=== PATIENT | female | born 1975 | race Asian ===

== ENCOUNTER 2016-08-01 12:20 | Emergency (ER) | payer OTHER ==
--- NOTE | 2016-08-01 13:37 | DIAGNOSTIC IMAGING REPORT ---
PROCEDURE: XR CHEST 2 VIEW INDICATION: COUGH TECHNIQUE: PA and lateral views. COMPARISON: None. FINDINGS: Lungs are clear. Heart and mediastinum are normal. Thorax is normal. IMPRESSION: 1. Negative chest.
--- NOTE | 2016-08-01 14:24 | ED NURSING NOTES ---
Clinical Report - Nurses [facility] [address] [place] [address] 08/01/2016 12:20 Patient: CLEMENTINA JIANG TRIAGE Triage time 12:Aug 01 2016. Acuity: LEVEL 4. Chief Complaint: COUGH, RUNNY NOSE and SORE THROAT. BENITA COMA SCORE: Benita Coma Scale: 15- eyes open spontaneously (4); best verbal response- oriented x 4 (5); best motor response- obeys commands (6). --12:35 Nora Meier R.N. 12:27 08/01/16. BP: 145/73. HR: 87. RR: 18. O2 saturation: 100%. Temp: 98.6 F. Pain level now 7/10. --12:35 Nora Meier R.N. Weight: 72.5 kg stated. Height/Length: 66 inches Per Patient. BMI: 25.8. --12:33 Nora Meier R.N. Medications Benadryl Allergy Oral. --12:31 Nora Meier R.N. Allergies No Known Drug Allergy. --12:31 Nora Meier R.N. History Arrived by private vehicle. Historian: patient. Accompanied by family. Onset. (Last week). ( Started having cough and last week accidently inhaled disinfection spray and thought that's where her coughing started. Now she feels achy and and when she takes a deep breath her chest and back hurts.). She has had a nasal discharge, chest congestion, chills, fatigue and a headache. She has had photophobia. Reports muscle aches. No sinus pain or difficulty breathing. 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 PAST MEDICAL HX: Immunizations: up-to-date. Last normal menstrual period- 2 days ago. SOCIAL HX: Never smoker. Occasional alcohol use. No drug use. No infectious disease exposure. SELF HARM ASSESSMENT: A self harm assessment was performed. The patient answered "no" to the question "Have you recently felt down, depressed, or hopeless?" and "Do you have thoughts of harming or killing yourself?". FALL RISK ASSESSMENT: Fall risk assessment completed. No fall risk identified. NUTRITIONAL RISK ASSESSMENT: The nutritional risk assessment revealed no deficiencies. FUNCTIONAL ASSESSMENT: Functional assessment: no impairments noted. LEARNING NEEDS ASSESSMENT: The learning needs assessment revealed no barriers. ABUSE ASSESSMENT: Abuse assessment: (yes) The patient was asked "Do you feel safe in your home?". SKIN INTEGRITY ASSESSMENT: Skin integrity risk assessment completed. No skin integrity risk identified. --12:35 Nora Meier R.N. PROBLEMS: Influenza. Gastroesophageal Reflux Disease. --12:31 Nora Meier R.N. ADDITIONAL SURGERIES: . Tonsillectomy. Tubal Ligation. --12:31 Nora Meier R.N. Interventions ID band on patient. --12:35 Nora Meier R.N. PHYSICAL ASSESSMENT Ambulatory to room. GENERAL / NEURO / PSYCH: Alert. Oriented X 4. Appears in no acute distress. HEENT: Pupils equal, round and reactive to light. Ears within normal limits. Nares within normal limits. Mouth within normal limits upon inspection. Pharynx within normal limits. Voice within normal limits. Mucous membranes are pink. RESPIRATORY: Respirations not labored. Breath sounds within normal limits. CVS: Normal sinus rhythm noted. Capillary refill less than 2 seconds. SKIN: Skin is warm and dry. Normal skin turgor. --12:36 Nora Meier R.N. NURSING PROGRESS NOTES Pulse oximeter and NIBP monitor placed on patient. Head of bed elevated (90). Reassurance given. --12:36 Nora Meier R.N. DISPOSITION / DISCHARGE Departure time: 14:37 Aug 01 2016. Condition at departure: improved. No learning barriers present. Discharge instructions provided and reviewed with the patient. Reviewed warnings. Reviewed medication(s). Treatments reviewed. Reviewed referrals. Patient verbalized understanding. Written instructions provided in [place]. The patient was discharged home and accompanied by spouse. She left the Emergency Department ambulatory and via private vehicle. Spouse driving. --14:38 Nora Meier R.N. 14:35 08/01/16. BP: 132/70. HR: 77. RR: 18. O2 saturation: 97%. Temp: 97.8 F. Pain level now 06/14. --14:38 Nora Meier R.N. Locked/Released at 08/01/2016 16:46 by Nora Meier R.N.
--- NOTE | 2016-08-01 14:24 | ED NURSING NOTES ---
Clinical Report - Nurses [facility] [address] [place] [address] 08/01/2016 12:20 Patient: CLEMENTINA JIANG TRIAGE Triage time 12:Aug 01 2016. Acuity: LEVEL 4. Chief Complaint: COUGH, RUNNY NOSE and SORE THROAT. BENITA COMA SCORE: Benita Coma Scale: 15- eyes open spontaneously (4); best verbal response- oriented x 4 (5); best motor response- obeys commands (6). --12:35 Nora Meier R.N. 12:27 08/01/16. BP: 145/73. HR: 87. RR: 18. O2 saturation: 100%. Temp: 98.6 F. Pain level now 7/10. --12:35 Nora Meier R.N. Weight: 72.5 kg stated. Height/Length: 66 inches Per Patient. BMI: 25.8. --12:33 Nora Meier R.N. Medications Benadryl Allergy Oral. --12:31 Nora Meier R.N. Allergies No Known Drug Allergy. --12:31 Nora Meier R.N. History Arrived by private vehicle. Historian: patient. Accompanied by family. Onset. (Last week). ( Started having cough and last week accidently inhaled disinfection spray and thought that's where her coughing started. Now she feels achy and and when she takes a deep breath her chest and back hurts.). She has had a nasal discharge, chest congestion, chills, fatigue and a headache. She has had photophobia. Reports muscle aches. No sinus pain or difficulty breathing. 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 PAST MEDICAL HX: Immunizations: up-to-date. Last normal menstrual period- 2 days ago. SOCIAL HX: Never smoker. Occasional alcohol use. No drug use. No infectious disease exposure. SELF HARM ASSESSMENT: A self harm assessment was performed. The patient answered "no" to the question "Have you recently felt down, depressed, or hopeless?" and "Do you have thoughts of harming or killing yourself?". FALL RISK ASSESSMENT: Fall risk assessment completed. No fall risk identified. NUTRITIONAL RISK ASSESSMENT: The nutritional risk assessment revealed no deficiencies. FUNCTIONAL ASSESSMENT: Functional assessment: no impairments noted. LEARNING NEEDS ASSESSMENT: The learning needs assessment revealed no barriers. ABUSE ASSESSMENT: Abuse assessment: (yes) The patient was asked "Do you feel safe in your home?". SKIN INTEGRITY ASSESSMENT: Skin integrity risk assessment completed. No skin integrity risk identified. --12:35 Nora Meier R.N. PROBLEMS: Influenza. Gastroesophageal Reflux Disease. --12:31 Nora Meier R.N. ADDITIONAL SURGERIES: . Tonsillectomy. Tubal Ligation. --12:31 Nora Meier R.N. Interventions ID band on patient. --12:35 Nora Meier R.N. PHYSICAL ASSESSMENT Ambulatory to room. GENERAL / NEURO / PSYCH: Alert. Oriented X 4. Appears in no acute distress. HEENT: Pupils equal, round and reactive to light. Ears within normal limits. Nares within normal limits. Mouth within normal limits upon inspection. Pharynx within normal limits. Voice within normal limits. Mucous membranes are pink. RESPIRATORY: Respirations not labored. Breath sounds within normal limits. CVS: Normal sinus rhythm noted. Capillary refill less than 2 seconds. SKIN: Skin is warm and dry. Normal skin turgor. --12:36 Nora Meier R.N. NURSING PROGRESS NOTES Pulse oximeter and NIBP monitor placed on patient. Head of bed elevated (90). Reassurance given. --12:36 Nora Meier R.N. DISPOSITION / DISCHARGE Departure time: 14:37 Aug 01 2016. Condition at departure: improved. No learning barriers present. Discharge instructions provided and reviewed with the patient. Reviewed warnings. Reviewed medication(s). Treatments reviewed. Reviewed referrals. Patient verbalized understanding. Written instructions provided in [place]. The patient was discharged home and accompanied by spouse. She left the Emergency Department ambulatory and via private vehicle. Spouse driving. --14:38 Nora Meier R.N. 14:35 08/01/16. BP: 132/70. HR: 77. RR: 18. O2 saturation: 97%. Temp: 97.8 F. Pain level now 06/14. --14:38 Nora Meier R.N. Locked/Released at 08/01/2016 16:46 by Nora Meier R.N.
--- NOTE | 2016-08-01 14:24 | ED ORDER SUMMARY ---
..... Patient: CLEMENTINA JIANG OrderSheet Located Within [facility] VisitID: [id number] [place] [address] 41y, F Registration Date/Time: 08/01/2016 ORDER SHEET Weight: 72.5 kg (stated) Allergies: No Known Drug Allergy GENERAL ORDERS: Chest 2V Urgent (12:41 08/01/2016 Marely Nuñez) (Ack 12:44 oerner) (13:00 oermagan) MEDICATION ORDERS: IV FLUIDS: ORDER SHEET NOTES: [Electronically signed by Bibi MonroeNJose Enrique (15:22 08/01/2016)] [Electronically signed by Nora Meier R.N. (16:46 08/01/2016)] [Electronically locked/signed by Nora Meier R.N. (16:46 08/01/2016)]
--- NOTE | 2016-08-01 14:24 | ED ORDER SUMMARY ---
..... Patient: CLEMENTINA JIANG OrderSheet [facility] VisitID: [id number] [place] [address] 41y, F Registration Date/Time: 08/01/2016 ORDER SHEET Weight: 72.5 kg (stated) Allergies: No Known Drug Allergy GENERAL ORDERS: Chest 2V Urgent (12:41 08/01/2016 Marely Nuñez) (Ack 12:44 oerner) (13:00 oermagan) MEDICATION ORDERS: IV FLUIDS: ORDER SHEET NOTES: [Electronically signed by Bibi MonroeNJose Enrique (15:22 08/01/2016)] [Electronically signed by Nora Meier R.N. (16:46 08/01/2016)] [Electronically locked/signed by Nora Meier R.N. (16:46 08/01/2016)]
--- NOTE | 2016-08-01 14:24 | ED CLINICAL REPORT ---
Clinical Report - Physicians/Mid Levels [facility] [address] [place] [address] 08/01/2016 12:20 Patient: CLEMENTINA JIANG Time Seen: 13:07; initial patient contact, initial documentation, patient care assumed. Arrived- By private vehicle. Historian- patient. HISTORY OF PRESENT ILLNESS Chief Complaint: COUGH and SORE THROAT. This started about 1 weeks ago and is still present. It was abrupt in onset and has been constant. The illness is described as mild. The patient has had a cough, a sore throat, nasal congestion, chills and muscle aches. She has had a nasal discharge. No sputum production, fever, sinus pressure, sinus drainage or ear pain. She has had generalized chest soreness (with cough and deep breath). Additional history - The patient has had contact with a sick family member. Symptoms of the sick contact include cough. They have had similar symptoms. No recent travel. Similar symptoms previously: None. Recent medical care: Not recently seen/assessed. REVIEW OF SYSTEMS The patient has had a headache. No vomiting or diarrhea. Denies current . fatigue, tired. All systems otherwise negative, except as recorded above. PAST HISTORY See nurses notes. PROBLEMS: Influenza. Gastroesophageal Reflux Disease. --12:31 Nora Meier R.N. ADDITIONAL SURGERIES: . Tonsillectomy. Tubal Ligation. --12:31 Nora Meier R.N. SOCIAL HISTORY Never smoker. Occasional alcohol use. Not exposed to second-hand smoke at home. No drug use. No recent travel. Is a local resident. FAMILY HISTORY Negative. ADDITIONAL NOTES The nursing notes have been reviewed with agreement regarding the chief complaint, HPI, ROS, PMH and patient medications and allergies. PHYSICAL EXAM Vital Signs: 08/01/2016 12:27 BP: 145/73. HR: 87. RR: 18. O2 saturation: 100%. Temp: 98.6 F. Have been reviewed as normal and appear to be correct. Appearance: Alert. No acute distress. Eyes: Pupils equal, round and reactive to light. Eyes normal inspection. ENT: Ears normal. Nose normal. Pharynx normal. Uvula midline. Neck: Normal inspection. Neck supple. CVS: Normal heart rate and rhythm. Heart sounds normal. Pulses normal. Respiratory: No respiratory distress. Breath sounds normal. Back: Normal inspection. Skin: Skin warm and dry. Normal skin color. No rash. Normal skin turgor. Extremities: Extremities exhibit normal ROM. No lower extremity edema. Neuro: Oriented X 3. No motor deficit. No sensory deficit. PROGRESS AND PROCEDURES Patient counseled in person regarding the patient's stable condition and diagnosis. 14:23. Differential Diagnosis: Other possible considerations: uri, flu, viral illness, allergies, sinusitis, bronchitis, pneumonia. Above considerations are based on history and physical exam. Differential diagnosis was discussed with patient. Disposition: Discharged home in good and unchanged condition (14:24). Condition: good and stable. CLINICAL IMPRESSION Acute viral rhinitis. INSTRUCTIONS Alternate Tylenol (Acetaminophen) and Motrin (Ibuprofen) for fever, temperature greater than 101 degrees orally. Take according to label instructions. Drink plenty of fluids for the next 24 hours until better. Warnings: GENERAL WARNINGS: Return or contact your physician immediately if your condition worsens or changes unexpectedly, if not improving as expected, or if other problems arise. Specifically return if problem worsens. Prescription Medications: Tessalon Perles 100 mg: Take 1 orally every 8 hours as needed for cough. Dispense twenty (20). No refills. Substitution is permissible. Follow-up: Follow up with your doctor in about five days as needed. Call for an appointment. Summary of care provided to patient. Understanding of the discharge instructions verbalized by patient. (Electronically signed by Bibi Monroe A.R.N.P. 08/01/2016 15:22)
--- NOTE | 2016-08-01 16:46 | ED MED RECONCILIATION SUMMARY ---
Patient: CLEMENTINA JIANG Medication Reconciliation Report [facility] VisitID: [id number] [place] [address] 41y, F Registration Date/Time: 08/01/2016 Weight: 72.5 kg Height/Length: 66 in. BMI: 25.8 ALLERGIES: No Known Drug Allergy The patient's Home Medications are listed below: THE FOLLOWING MEDICATIONS NEED TO BE RECONCILED: Benadryl Allergy Oral The source(s) of the original Home Medication information: Not obtained. The following Medications were given to the patient in the Emergency Department: None. The following Medications were prescribed to the patient: Tessalon Perles 100 mg: Take 1 orally every 8 hours as needed for cough. Dispense twenty (20). No refills. Substitution is permissible. -- Bibi Monroe A.R.N.P.
--- NOTE | 2016-08-01 16:46 | ED DISCHARGE INSTRUCTIONS ---
Patient: CLEMENTINA JIANG General Instructions [facility] VisitID: [id number] [place] [address] 41y, F Registration Date/Time: 08/01/2016 Acute viral rhinitis. INSTRUCTIONS Alternate Tylenol (Acetaminophen) and Motrin (Ibuprofen) for fever, temperature greater than 101 degrees orally. Take according to label instructions. Drink plenty of fluids for the next 24 hours until better. Warnings: GENERAL WARNINGS: Return or contact your physician immediately if your condition worsens or changes unexpectedly, if not improving as expected, or if other problems arise. Specifically return if problem worsens. Prescription Medications: Tessalon Perles 100 mg: Take 1 orally every 8 hours as needed for cough. Dispense twenty (20). No refills. Substitution is permissible. Follow-up: Follow up with your doctor in about five days as needed. Call for an appointment. Summary of care provided to patient. Understanding of the discharge instructions verbalized by patient. ADDITIONAL INFORMATION Viral Respiratory Illness [Adult] You have an Upper Respiratory Illness (URI) caused by a virus. This illness is contagious during the first few days. It is spread through the air by coughing and sneezing or by direct contact (touching the sick person and then touching your own eyes, nose or mouth). Most viral illnesses go away within 7-10 days with rest and simple home remedies. Sometimes, the illness may last for several weeks. Antibiotics will not kill a virus and are generally not prescribed for this condition. Home Care: 1) If symptoms are severe, rest at home for the first 2-3 days. When you resume activity, don't let yourself get too tired. 2) Avoid being exposed to cigarette smoke (yours or others). 3) Tylenol (acetaminophen) or ibuprofen (Advil, Motrin) will help fever, muscle aching and headache. (Persons under 18 with fever should not take aspirin since this may cause liver damage.) 4) Your appetite may be poor, so a light diet is fine. Avoid dehydration by drinking 6-8 glasses of fluids per day (water, soft drinks, juices, tea, soup). Extra fluids will help loosen secretions in the nose and lungs. 5) Ixqw-mtr-becthfj cold medicines will not shorten the length of time youre sick, but they may be helpful for the following symptoms: cough (Robitussin DM); sore throat (Chloraseptic lozenges or spray); nasal and sinus congestion (Actifed, Sudafed, Chlortrimeton). Follow Up with your doctor or as advised if you dont improve over the next week. Get Prompt Medical Attention if any of the following occur: -- Cough with lots of colored sputum (mucus) or blood in your sputum -- Chest pain, shortness of breath, wheezing or have trouble breathing -- Severe headache; face, neck or ear pain -- Fever over 100.4 F (38.0 C) for more than three days -- You cant swallow due to throat pain Fever Control (Adult) A fever is a natural reaction of the body to an illness. In most cases, the temperature itself is not harmful. It actually helps the body fight infections. A fever does not need to be treated unless you feel very uncomfortable. Home Care If you feel warm, check your temperature. If you feel very uncomfortable and your temperature is at or higher than 100.4F (38C) oral, you may take acetaminophen (Tylenol) every 4 to 6 hours. If you cant take or keep down oral medicine, ask your pharmacist for Tylenol suppositories, which you can get without a prescription. If the fever does not respond to acetaminophen within 1 hour, take ibuprofen (Advil or Motrin). If this works, keep taking the ibuprofen every 6 to 8 hours. Note: If you have chronic liver or kidney disease or ever had a stomach ulcer or GI bleeding, talk with your doctor before using these medications. If either medication alone does not keep the fever down, you may alternate the two medicines every 3 to 4 hours, only if your healthcare provider has instructed you to do so. For example, take Motrin then wait 3 hours, take Tylenol then wait 3 hours, take Motrin, and so on. Follow your healthcare providers instructions exactly. Clothing: Keep clothing light because excess body heat is lost through the skin. The fever will go up if you wear extra layers or wrap in blankets. Fluids: Fever causes the body to lose water through evaporation. Drink plenty of fluids such as water, juice, clear sodas, leo evelyn, or lemonade. Do not use aspirin in anyone under 18 years of age who is ill with a fever. It can cause severe liver damage. Follow Up with your doctor or as advised by our staff if you do not get better after 48 hours. Get Prompt Medical Attention if any of the following occur: Fever does not get better after taking fever medication Fast or difficult breathing Earache, sinus pain, stiff or painful neck, headache, repeated diarrhea or vomiting You feel unusually irritable, drowsy, or confused A rash appears You feel weak or dizzy, or that you might faint Benzonatate Oral capsule, liquid filled What is this medicine? BENZONATATE (samuel GEORGES na collier) is used to treat cough. How should I use this medicine? Take this medicine by mouth with a glass of water. Follow the directions on the prescription label. Avoid breaking, chewing, or sucking the capsule, as this can cause serious side effects. Take your medicine at regular intervals. Do not take your medicine more often than directed. Talk to your punch machine operator regarding the use of this medicine in children. While this drug may be prescribed for children as young as 10 years old for selected conditions, precautions do apply. What side effects may I notice from receiving this medicine? Side effects that you should report to your doctor or health veterinarian laboratory animal care as soon as possible: allergic reactions like skin rash, itching or hives, swelling of the face, lips, or tongue breathing problems chest pain confusion or hallucinations irregular heartbeat numbness of mouth or throat seizures Side effects that usually do not require medical attention (report to your doctor or health veterinarian laboratory animal care if they continue or are bothersome): burning feeling in the eyes constipation headache nasal congestion stomach upset What may interact with this medicine? Do not take this medicine with any of the following medications: MAOIs like Carbex, Eldepryl, Marplan, Nardil, and Parnate What if I miss a dose? If you miss a dose, take it as soon as you can. If it is almost time for your next dose, take only that dose. Do not take double or extra doses. Where should I keep my medicine? Keep out of the reach of children. Store at room temperature between 15 and 30 degrees C (59 and 86 degrees F). Keep tightly closed. Protect from light and moisture. Throw away any unused medicine after the expiration date. What should I tell my health care provider before I take this medicine? They need to know if you have any of these conditions: kidney or liver disease an unusual or allergic reaction to benzonatate, anesthetics, other medicines, foods, dyes, or preservatives or trying to get breast-feeding What should I watch for while using this medicine? Tell your doctor if your symptoms do not improve or if they get worse. If you have a high fever, skin rash, or headache, see your health veterinarian laboratory animal care. You may get drowsy or dizzy. Do not drive, use machinery, or do anything that needs mental alertness until you know how this medicine affects you. Do not sit or stand up quickly, especially if you are an older patient. This reduces the risk of dizzy or fainting spells. You have been given the following additional information: Uri, Viral, No Abx (Adult) Fever Control (Adult) Benzonatate Oral capsule, liquid filled (Electronically signed by Bibi Monroe A.R.N.P. 08/01/2016 15:22)
--- NOTE | 2016-08-01 16:46 | ED MED RECONCILIATION SUMMARY ---
Patient: CLEMENTINA JIANG Medication Reconciliation Report [facility] VisitID: [id number] [place] [address] 41y, F Registration Date/Time: 08/01/2016 Weight: 72.5 kg Height/Length: 66 in. BMI: 25.8 ALLERGIES: No Known Drug Allergy The patient's Home Medications are listed below: THE FOLLOWING MEDICATIONS NEED TO BE RECONCILED: Benadryl Allergy Oral The source(s) of the original Home Medication information: Not obtained. The following Medications were given to the patient in the Emergency Department: None. The following Medications were prescribed to the patient: Tessalon Perles 100 mg: Take 1 orally every 8 hours as needed for cough. Dispense twenty (20). No refills. Substitution is permissible. -- Bibi Monroe A.R.N.P.
--- NOTE | 2016-08-01 16:46 | ED MAR SUMMARY ---
..... Medication Administration Record [facility] [address] [place], [place] [id number] Patient: CLEMENTINA JIANG Visit ID: [id number] 41y, F Weight: 72.5 kg Height/Length: 66 in BMI: 25.8 ALLERGIES: No Known Drug Allergy
--- NOTE | 2016-08-01 16:46 | ED MAR SUMMARY ---
..... Medication Administration Record [facility] [address] [place] [place], [place] [id number] Patient: CLEMENTINA JIANG Visit ID: [id number] 41y, F Weight: 72.5 kg Height/Length: 66 in BMI: 25.8 ALLERGIES: No Known Drug Allergy
== END 2016-08-01 14:35 | disposition home or self-care (01) ==
LOC: ED SRH 12:20
DX: J00 Acute nasopharyngitis [common cold] (principal); R05 Cough